=== PATIENT | female | born 1940 | race Caucasian/White ===

== ENCOUNTER 2016-12-11 05:48 | Outpatient (CLI) | payer MEDICARE ==
[~2016-12-11] VITALS: Ht 167.6 cm; Wt 111.1 kg
[2016-12-11] MEDS ORDERED: GABA-488 PO (13:23)
[2016-12-11] MEDS ORDERED: TURM538C PO (13:23)
[2016-12-11] MEDS ORDERED: ALPR0.5T7 PO (13:23)
[2016-12-11] MEDS ORDERED: LEVO137T2 PO (13:23)
== END 2016-12-11 13:33 ==
LOC: PREOP 05:48
PROVIDERS: ATTEND Internal Medicine
DX: Z01.818 Encounter for other preprocedural examination (principal); Z12.11 Encounter for screening for malignant neoplasm of colon

== ENCOUNTER 2016-12-13 07:13 | Day surgery (SDC) | payer MEDICARE ==
[~2016-12-13] VITALS: Ht 167.6 cm; Wt 111.1 kg
[~2016-12-13 07:13] MED LIST: ALPR0.5T7 PO; GABA-488 PO; LEVO137T2 PO; TURM538C PO
--- NOTE | 2016-12-13 07:23 | HISTORY AND PHYSICAL ---
DATE OF SERVICE: DATE OF ADMISSION: 12/13/2016 HISTORY OF PRESENT ILLNESS: The patient is a 76-year-old female referred for screening colonoscopy. She had one other colonoscopy in [address] Gill that revealed sigmoid diverticulosis with no other abnormalities, no evidence for neoplasia. Since that time, she denies bowel habit changes noted, no bright red blood per rectum or melena. She reports that her health has been good and she voices no complaints. FAMILY HISTORY: She is not aware of any family history for colon cancer or colon polyps. PAST MEDICAL HISTORY: Significant for what sounds like toxic multinodular goiter which was removed in the 40s. 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 She has insomnia issues and will take alprazolam at bedtime. She has some mild arthritis issues that she will take Aleve for most days of the week. She has no known past history of peptic ulcer disease. PAST SURGICAL HISTORY: Other than her goiter removal of significant for total abdominal hysterectomy for benign reasons at the age of 51. At the age of 61, she underwent right then left total knee replacement for osteoarthritis. SOCIAL HISTORY: She is a retired national insurance officer for a local [employer] with no past drinking or smoking history. She is with children. PHYSICAL EXAMINATION: GENERAL: Reveals a pleasant overweight white female in no acute distress. VITAL SIGNS: Weight is 247 pounds, blood pressure 126/92, heart rate 72 and regular. HEENT: She is a Mallampati class III. Oropharyngeal configuration. Pharynx is clear. NECK: Reveals no JVD, adenopathy or bruits. CHEST: Clear. CARDIOVASCULAR: Reveals regular rate and rhythm without murmur, S3 or S4. ABDOMEN: Soft, supple without mass, organomegaly or tenderness. EXTREMITIES: Reveal no cyanosis, clubbing or edema. ASSESSMENT: The patient was set up for screening colonoscopy. If there is no evidence for neoplasia will not likely be advocating future screening colonoscopy considering age. Prep instructions with split dose Colyte were given and questions were answered. The patient was advised to abstain from Aleve for at least 48 hours prior to the procedure and continue her other medications unchanged. Thirty-five minutes of lcpk-co-kipr care time spent today with other 5 minutes reviewing electronic medical record. Job ID: [id number] DocumentID: [id number] Dictated Date: 11/19/2016 15:36:29 Drop Forger Helper Date: 11/19/2016 17:55:26 Dictated By: MINH YU MD
[2016-12-13] MEDS ORDERED: 1/2 NS IV SOLUTION 1,000 ML IV STA (07:24)
[2016-12-13] MEDS ORDERED: MIDAZOLAM 2 MG/2 ML (VERSED) VIAL IVP PRN (07:30)
[2016-12-13] MEDS ORDERED: LIDOCAINE JELLY 2% (XYLOCAINE) 5 ML TUBE MM PRN (07:30)
[2016-12-13] MEDS: fentaNYL INJECTION 100 MCG/2 ML AMP IVP PRN ×2 (08:00→08:10)
[2016-12-13 08:12] VITALS: BP 165/104
[2016-12-13 08:40] VITALS: BP 133/83
--- NOTE | 2016-12-13 08:43 | Pre-Op Note & Conscious Sedat ---
Pre-Operative Progress Note H&P Reviewed The H&P was reviewed, patient examined and no changes noted. Date H&P Reviewed: Dec 13, 2016 Time H&P Reviewed: 07:50 Conscious Sedation Pre-Proced ASA Class: 2 Airway Mallampati Classification: (blackfeet appropriate class) I. II. III, IV Lungs Heart ASA score ASA 1: a normal healthy patient ASA 2: a patient with a mild systemic disease (mid diabetes, controlled hypertension, obesity ASA 3: a patient with a severe systemic disease that limits activity (angina , COPD, prior Myocardial infarction) ASA 4: a patient with an incapacitating disease that is a constant threat to life (CHF, renal failure) ASA 5: a moribund patient not expected to survive 24 hrs. (ruptured aneurysm) ASA 6: a declared brain patient whose organs are being harvested. For emergent operations, add the letter E after the classification Grade 3 Sedation Plan: Analgesia, Amnesia, Plan communicated to team members, Discussed options with patient/fam, Discussed risks with patient/fam Note The patient is an appropriate candidate to undergo the planned procedure, sedation, and anesthesia. The patient immediately re-assessed prior to indication. MINH YU MD Dec 13, 2016 08:43
[2016-12-13 09:10] VITALS: BP 148/80
[2016-12-13 12:24] VITALS: BP 148/80
--- NOTE | 2016-12-13 15:28 | OPERATIVE REPORT ---
DATE OF SERVICE: 12/13/2016 INDICATION FOR THE PROCEDURE: Screening colonoscopy. DESCRIPTION OF PROCEDURE: The patient was placed in the left lateral decubitus position. Prior to undergoing colonoscopy, digital rectal evaluation was performed. Anal sphincter tone was laxed. Perianal reflex is intact. No other abnormalities on additional inspection of the anal canal or distal rectal vault. The colonoscope was then inserted into the rectum and under direct visualization, advanced to the cecum. The cecum was identified by identification of the ileocecal valve and cecal strap. Photographic documentation was obtained. Careful inspection was made as the colonoscope was withdrawn. FINDINGS: There was no evidence for internal or external hemorrhoids and the rectum was unremarkable. A moderate number of lhfpr-ol-vjnswj size sigmoid diverticuli were present without evidence for diverticulitis. No other sigmoid colonic abnormalities were appreciated. The descending colon, splenic flexure, transverse colon, hepatic flexure, ascending colon and cecum were unremarkable. ASSESSMENT: 1. Moderate diverticular disease confined to the sigmoid colon was present without evidence for diverticulitis. 2. No evidence for neoplasia was identified. Considering this patient's age, I would not recommend future screening colonoscopy. I thank you for referral of this pleasant lady. Job ID: [id number] DocumentID: [id number] Dictated Date: 12/13/2016 08:32:22 Migration Agent Date: 12/13/2016 13:42:39 Dictated By: MINH YU MD
== END 2016-12-13 09:20 | disposition home or self-care (01) ==
LOC: ENDO 07:13
PROVIDERS: ATTEND Internal Medicine
DX: Z12.11 Encounter for screening for malignant neoplasm of colon (principal); K57.30 Diverticulosis of large intestine without perforation or abscess without bleeding; G47.00 Insomnia, unspecified; M19.91 Primary osteoarthritis, unspecified site; Z79.899 Other long term (current) drug therapy

== ENCOUNTER → 2016-12-26 | Outpatient (CLI) | payer MEDICARE ==
--- NOTE | 2016-12-26 10:24 | Diagnostic Imaging Report ---
EXAMINATION: Two views of the lumbar spine. INDICATION: Multiple falls. FINDINGS: The alignment of the posterior spinal line is satisfactory. The vertebral body heights are preserved in the lumbar spine. There is mild vertebral body height loss at T11 and T12. There is disc height loss in the mid to lower lumbar spine levels and anterior osteophytes seen. No significant posterior osteophyte is noted. Mild degenerative changes of the SI joints are seen. The paraspinal soft tissues appear unremarkable. IMPRESSION: Age-indeterminate mild compression fractures of T11 and T12 are seen. Dictated by: Dictated on workstation # [id number]
--- NOTE | 2016-12-26 10:26 | Diagnostic Imaging Report ---
EXAMINATION: Two views of the thoracic spine. INDICATION: Back pain after falls. COMPARISON: 09/02/2008. FINDINGS: There are mild age indeterminate compression fractures of the T11 and T12 levels. When compared to 09/02/2008, these compression fractures were not there. If the patient has pain and tenderness around this location, then MRI could help verify if these are acute. The other thoracic spine vertebra demonstrate normal height. The alignment of the posterior spinal line is satisfactory. Minimal multilevel anterior osteophytes are seen with no posterior osteophytes. The paraspinal soft tissues appear unremarkable. IMPRESSION: Age-indeterminate compression fractures of the T11 and T12 levels. If there is pain and tenderness at this level, then an MRI of the thoracic spine is suggested to verify if these are acute. Dr. Tripp was informed about the findings at the time of dictation. Dictated by: Dictated on workstation # [id number]
--- NOTE | 2016-12-26 13:04 | Diagnostic Imaging Report ---
EXAMINATION: Three views of the cervical spine. INDICATION: Neck pain. FINDINGS: Minimal posterior translation of C3 over C4 is noted; otherwise, there is satisfactory alignment of the cervical spine. The vertebral body heights are preserved. There is moderate disc height loss at the C6-7 level with posterior osteophytes. Minimal disc height loss at C3-4 is also seen. The alignment of the lateral masses of C1 and C2 is satisfactory. IMPRESSION: Disc degenerative changes, most prominent at the C6-7 level, with posterior osteophytes seen. Dictated by: Dictated on workstation # [id number]
== END ==
LOC: RAD 09:05
PROVIDERS: ATTEND Family Medicine
DX: M50.323 Other cervical disc degeneration at C6-C7 level (principal); M48.54XA Collapsed vertebra, not elsewhere classified, thoracic region, initial encounter for fracture
CPT/HCPCS: 72040; 72072; 72100

== ENCOUNTER → 2017-01-09 | Outpatient (CLI) | payer MEDICARE ==
--- NOTE | 2017-01-09 21:12 | Diagnostic Imaging Report ---
EXAMINATION: DEXA scan. INDICATION: Osteopenia. TECHNIQUE: Bone mineral density estimated based on dual energy radiography over the lumbar spine and femoral necks, was performed. FINDINGS: The lumbar spine T-score is -0.4. This is 9% increased density measurement compared to 09/02/2008. T score over the left femoral neck is -2 and on the right side is -1.7. This is 5% decreased density measurement compared to the previous exam. The femoral neck measurements would be more accurate in this patient due to sclerotic degenerative changes in the lumbar spine. IMPRESSION: Osteopenia. Dictated by: Dictated on workstation # [id number]
== END ==
LOC: RAD 08:08
PROVIDERS: ATTEND Family Medicine
DX: M85.89 Other specified disorders of bone density and structure, multiple sites (principal)
CPT/HCPCS: 77080

== ENCOUNTER → 2017-12-26 | Outpatient (CLI) | payer MEDICARE ==
--- NOTE | 2017-12-26 19:35 | Diagnostic Imaging Report ---
Digital mammogram bilateral screening. This study was compared to the prior exams of 01/15/2016, 07/18/2015, 12/28/2014, and 11/19/2012. At this time, there are no current complaints. The current study was also evaluated with a Computer Aided Detection (CAD) system. 3-D tomosynthesis was also performed and reviewed. FINDINGS: The fibroglandular tissue in both breasts is heterogeneously dense. This does limit the sensitivity of this exam. Overall, there does not appear to have been any significant change when compared to the prior study. No primary or secondary sign of malignancy is noted. IMPRESSION: There is no radiographic evidence for malignancy. ACR BI-RADS Category 1: Negative. Result letter will be mailed to the patient. Note: At least 10% of breast cancer is not imaged by mammography. Dictated by: Dictated on workstation # [id number]
== END ==
LOC: RAD 10:06
PROVIDERS: ATTEND Nurse Practitioner Family
DX: Z12.31 Encounter for screening mammogram for malignant neoplasm of breast (principal)
CPT/HCPCS: 77067

== ENCOUNTER → 2018-04-13 | Outpatient (CLI) | payer MEDICARE | LOC: CARD 11:28 | PROVIDERS: ATTEND Internal Medicine Interventional Cardiology | DX: R00.2 Palpitations (principal); I47.1 Supraventricular tachycardia | CPT/HCPCS: 93225; 93226 ==

== ENCOUNTER → 2018-05-06 | Outpatient (CLI) | payer MEDICARE | LOC: CARD 07:50 | PROVIDERS: ATTEND Internal Medicine Interventional Cardiology | DX: R00.2 Palpitations (principal); I47.1 Supraventricular tachycardia; R53.83 Other fatigue; I07.1 Rheumatic tricuspid insufficiency | CPT/HCPCS: 93270; 93306 ==

== ENCOUNTER 2019-03-08 | Outpatient (RCR) | payer MEDICARE ==
[2019-02-11 09:28] VITALS: BP 140/85
[2019-02-11 09:32] VITALS: BP 156/104
--- NOTE | 2019-02-18 14:00 | Cardiology Stress Test Report ---
Stress Test Report Type of NM Stress Test: Test Type: LEXISCAN 0.4MG/5ML Date of Procedure/Referring: Date of Procedure: Feb 11, 2019 PCP Adore Camarena MD Admitting Physician Haleigh Tripp DO Indications: Chest pain Baseline Heart Rate: 93 Baseline Blood Pressure: Blood Pressure Systolic: 156 Blood Pressure Diastolic: 104 Baseline EKG: Baseline EKG: sinus rhythm Summary & Conclusion: Summary: The patient was brought to the stress lab after informed consent was taken. Stress test was performed according to the Lexiscan protocol. 0.4 mg of IV Lexiscan was given. Low-grade exercise was performed. Baseline EKG showed sinus rhythm at 93 BPM. Initial blood pressure was 140/85 mmHg. Maximum heart rate was 106 bpm and blood pressure 138/102 mmHg. Patient did not have any chest pain, arrhythmias or ST segment changes during the stress test. 10.77 mCi of Myoview were given for rest imaging and 32.5 mCi of Myoview given for stress imaging. Transient ischemic dilatation score 0.92, EF 68 percent. Normal wall motion. Normal myocardial perfusion imaging during rest and stress. Conclusion: Pharmacological stress test was negative for ischemia. Normal LV function with no wall motion abnormalities. Normal myocardial perfusion imaging during rest and stress. Adore CAMARENA MD Feb 18, 2019 14:00 POS
[~2019-03-08] VITALS: Ht 185 cm; Wt 113.0 kg
[~2019-03-08] MED LIST changes: +CATHETER FLUSH 10 ML SYR IV PRN; +REGADENOSON 0.4 MG/5 ML SYR (LEXISCAN) IV ONE
== END 2019-05-12 | disposition home or self-care (01) ==
LOC: CARD
PROVIDERS: ATTEND Internal Medicine Interventional Cardiology
DX: I47.1 Supraventricular tachycardia (principal); E66.01 Morbid (severe) obesity due to excess calories
CPT/HCPCS: 78452; 93017

== ENCOUNTER → 2019-03-25 | Outpatient (CLI) | payer MEDICARE ==
[~2019-03-25] MED LIST changes: -CATHETER FLUSH 10 ML SYR IV PRN; -REGADENOSON 0.4 MG/5 ML SYR (LEXISCAN) IV ONE
--- NOTE | 2019-03-25 14:26 | Diagnostic Imaging Report ---
INDICATION: Shortness of breath and fatigue. TIME OF EXAM: 02:12 p.m. COMPARISON: Comparison is made with prior chest from 04/28/2007. FINDINGS: The heart size is normal. The pulmonary vascularity is unremarkable. The lungs are clear. No infiltrate, effusion or pneumothorax is detected. IMPRESSION: No acute cardiopulmonary process is detected. Dictated by: Dictated on workstation # [id number]
== END ==
LOC: RAD 13:56
PROVIDERS: ATTEND Family Medicine
DX: R06.02 Shortness of breath (principal); R53.83 Other fatigue; R09.89 Other specified symptoms and signs involving the circulatory and respiratory systems
CPT/HCPCS: 71046

== ENCOUNTER → 2019-11-12 | Outpatient (CLI) | payer MEDICARE ==
--- NOTE | 2019-11-12 13:11 | Diagnostic Imaging Report ---
INDICATION: Routine screening. COMPARISON is made with prior mammograms from 12/26/2017 and 01/15/2016. 2-D and 3-D bilateral screening mammography was performed with CAD. Both breasts are heterogeneously dense, limiting the sensitivity of mammography. The parenchymal pattern is stable. There are benign parenchymal and vascular calcifications bilaterally. Probable intramammary lymph node upper outer left breast is stable. No new mass or malignant appearing microcalcifications are identified. Axillae are unremarkable. IMPRESSION: BI-RADS Category 2 No mammographic features suspicious for malignancy are identified. ACR BI-RADS Category 2: Benign findings. Result letter will be mailed to the patient. Note: At least 10% of breast cancer is not imaged by mammography. Dictated by: Dictated on workstation # [id number]
== END ==
LOC: RAD 10:16
PROVIDERS: ATTEND Family Medicine
DX: Z12.31 Encounter for screening mammogram for malignant neoplasm of breast (principal)
CPT/HCPCS: 77063; 77067

== ENCOUNTER 2020-12-06 12:19 | Outpatient (CLI) | payer MEDICARE | END 2020-12-06 12:56 | LOC: SLEEP 12:19 | PROVIDERS: ATTEND Internal Medicine Cardiovascular Disease | DX: I47.1 Supraventricular tachycardia (principal); R53.83 Other fatigue | CPT/HCPCS: G0399 ==

== ENCOUNTER → 2020-12-06 | Outpatient (CLI) | payer MEDICARE | LOC: CARD 14:30 | PROVIDERS: ATTEND Internal Medicine Cardiovascular Disease | DX: I51.7 Cardiomegaly (principal); I35.8 Other nonrheumatic aortic valve disorders; I47.1 Supraventricular tachycardia | CPT/HCPCS: 93306 ==